=== PATIENT | female | born 1995 | race Two or more races ===

== ENCOUNTER 2025-09-12 10:26 | Emergency (ER) | payer OTHER, SELFPAY ==
[2025-09-12 10:55] VITALS: BP 130/70; PULSE 87; RESP 18; TEMP 36.9; O2SAT 99; BMI 23.1
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
== END 2025-09-12 15:02 | disposition home or self-care (01) ==
PROVIDERS: Emergency Provider Nurse Practitioner Family; PCP Family Medicine
DX: S29.9XXA Unspecified injury of thorax, initial encounter (principal); S89.92XA Unspecified injury of left lower leg, initial encounter; S89.91XA Unspecified injury of right lower leg, initial encounter; S49.92XA Unspecified injury of left shoulder and upper arm, initial encounter; S09.90XA Unspecified injury of head, initial encounter; V09.00XA Pedestrian injured in nontraffic accident involving unspecified motor vehicles, initial encounter; Y93.01 Activity, walking, marching and hiking; Y92.488 Other paved roadways as the place of occurrence of the external cause; Y99.0 Civilian activity done for income or pay
CPT/HCPCS: 70450; 71045; 73030; 73562; 99282